=== PATIENT | male | born 1955 | race Caucasian/White ===

== ENCOUNTER → 2024-03-17 | Day surgery (SDC) | payer MEDICARE ==
[~2024-03-17] MED LIST: ACETAMINOPHEN 1000 MG/100 ML IV ONE; ALLOPURINOL300 MG PO; BENICAR20 MG PO; BISOPROLOL-HCT1 EAC1 PO; CLARITIN10 MG PO; DEXAMETHASONE SOD PHOS 10 MG/1 ML VIAL ONE; DEXAMETHASONE SOD PHOS INJ 4 MG/ML SDV ONE; DEXMEDETOMIDINE HCL 200 MCG/2 ML VIAL ONE; FENTANYL CITRATE/PF 100MCG/2 ML INJ ONE; LACTATED RINGER'S 1,000 ML BAG ONE; LACTATED RINGER'S 1,000 ML ONE; LIDOCAINE HCL 2% LOCAL INJ 5 ML SDV VIAL INJ ONE; NABUMETONE500 MG PO; OFLOXACIN 0.3% (OTIC SOL) 5 ML BTL ONE; ONDANSETRON HCL INJ 2MG/ML 2ML 2 MG/ML VIAL ONE; PROPOFOL IV EMULSION 10 MG/ML 20 ML VIAL ONE; SEVOFLURANE INHAL SOLN 250 ML PEN BTL ONE; ZETIA10 MG PO
[2024-03-17] MEDS: LACTATED RINGER'S 1,000 ML INJ ONE (09:15)
[2024-03-17 12:17] VITALS: TEMP 97.8
[2024-03-17 13:07] VITALS: BP 149/84; PULSE 58; RESP 16; O2SAT 92
== END | disposition home or self-care (01) ==
LOC: OR 08:08 → EDBD 09:00 → EDSEX 09:00
PROVIDERS: ATTEND Otolaryngology Otolaryngology/Facial Plastic Surgery
DX: H65.31 Chronic mucoid otitis media, right ear (principal); H91.93 Unspecified hearing loss, bilateral; I10 Essential (primary) hypertension; E78.5 Hyperlipidemia, unspecified; M10.9 Gout, unspecified; L40.50 Arthropathic psoriasis, unspecified; Z79.899 Other long term (current) drug therapy; Z98.890 Other specified postprocedural states
CPT/HCPCS: 69399; 69436; 71046; 93005; J0131; J1100 ×2; J2001; J2405; J2704; J3010; J7121

== ENCOUNTER → 2024-09-22 | Day surgery (SDC) | payer MEDICARE ==
[~2024-09-22] MED LIST changes: -ACETAMINOPHEN 1000 MG/100 ML IV ONE; -DEXAMETHASONE SOD PHOS 10 MG/1 ML VIAL ONE; -DEXMEDETOMIDINE HCL 200 MCG/2 ML VIAL ONE; -FENTANYL CITRATE/PF 100MCG/2 ML INJ ONE; +KETAMINE HCL INJ 50 MG/ML 10 ML VIAL ONE; -LACTATED RINGER'S 1,000 ML BAG ONE; -LACTATED RINGER'S 1,000 ML ONE; +MULTIVITAMIN PO; -ONDANSETRON HCL INJ 2MG/ML 2ML 2 MG/ML VIAL ONE; -SEVOFLURANE INHAL SOLN 250 ML PEN BTL ONE; +SODIUM CHLORIDE 0.9% INJ 10 ML VIAL ONE
[2024-09-22] MEDS: LACTATED RINGER'S 1,000 ML ONE (08:29)
[2024-09-22 11:39] VITALS: TEMP 97.2
[2024-09-22 12:05] VITALS: BP 140/91; PULSE 61; RESP 16; O2SAT 96
== END | disposition home or self-care (01) ==
LOC: OR 07:52
PROVIDERS: ATTEND Otolaryngology Otolaryngology/Facial Plastic Surgery
DX: H65.491 Other chronic nonsuppurative otitis media, right ear (principal); H90.A31 Mixed conductive and sensorineural hearing loss, unilateral, right ear with restricted hearing on the contralateral side; G47.33 Obstructive sleep apnea (adult) (pediatric); I10 Essential (primary) hypertension; E78.5 Hyperlipidemia, unspecified; E66.01 Morbid (severe) obesity due to excess calories; M10.9 Gout, unspecified; L40.50 Arthropathic psoriasis, unspecified; Z79.899 Other long term (current) drug therapy
CPT/HCPCS: 69399; 69436; 93005; J1100; J2003; J2704; J7121